=== PATIENT | male | born 1960 | race Caucasian/White ===

== ENCOUNTER 2017-07-01 02:02 | Emergency (ER) | payer OTHER ==
[~2017-07-01] VITALS: Ht 180.3 cm; Wt 140.0 kg
[2017-07-01 02:05] VITALS: BP 152/72; PULSE 101; RESP 18; TEMP 97.6; O2SAT 95
--- NOTE | 2017-07-01 02:34 | PD ---
HPI Chief Complaint: Skin Problem Time Seen by Provider: 02:28 Travel History International Travel<30 days: No Contact w/Intl Traveler<30days: No Traveled to known affect area: No History of Present Illness HPI 56-year-old male patient with history of previous CAD, CVA, COPD, presents to the ER today because he has had 3 weeks history of the right leg swelling, redness, had been seen by primary care doctor and was treated several times with antibiotics without significant improvement, he states that it is hurting more today. He states that he has become more swollen. He denies any fevers or any other issues. Modifying Factors: None Associated Signs & Symptoms: Right leg swelling, redness for 3 weeks, worsening pain Risk Factors: None PFSH Past Medical History Cardiac Catheterization: Yes COPD: Yes Cerebrovascular Accident: Yes Coronary Artery Disease: Yes Diminished Hearing: No Hypertension: Yes Musculoskeletal: Yes (chronic back) Tetanus Vaccination: Unknown Influenza Vaccination: No Past Surgical History Coronary Stent: Yes (x1) Other Surgery: Yes (removed a lump from neck of neck ) Social History Alcohol Use: Yes (socially) Tobacco Use: Yes Substance Use: No ( medical [facility]) Allergies-Medications (Allergen,Severity, Reaction): Coded Allergies: No Known Allergies (Unverified , 07/01/17) Review of Systems Except as stated in HPI: all other systems reviewed are Neg Physical Exam Narrative GENERAL: Well-developed middle-age male patient currently in mild distress. Awake and oriented 3. SKIN: Focused skin assessment warm/dry. HEAD: Atraumatic. Normocephalic. EYES: Pupils equal and round. No scleral icterus. No injection or drainage. ENT: No nasal bleeding or discharge. Mucous membranes pink and moist. NECK: Trachea midline. No JVD. Supple. CARDIOVASCULAR: Regular rate and rhythm. No murmur appreciated. RESPIRATORY: No accessory muscle use. Clear to auscultation. Breath sounds equal bilaterally. GASTROINTESTINAL: Abdomen soft, non-tender, nondistended. Hepatic and splenic margins not palpable. MUSCULOSKELETAL: No obvious deformities. No clubbing. No cyanosis. Right pitting edema, calf tenderness, erythema. NEUROLOGICAL: Awake and alert. No obvious cranial nerve deficits. Motor grossly within normal limits. Normal speech. PSYCHIATRIC: Appropriate mood and affect; insight and judgment normal. Data Data Last Documented VS Vital Signs Date Time Temp Pulse Resp B/P (MAP) Pulse Ox O2 Delivery O2 Flow Rate FiO2 07/01/17 02:05 97.6 101 18 152/72 (98) 95 Orders Orders Complete Blood Count With Diff (07/01/17 02:28) Comprehensive Metabolic Panel (07/01/17 02:28) Prothrombin Time / Inr (Pt) (07/01/17 02:28) Act Partial Throm Time (Ptt) (07/01/17 02:28) Us Leg Venous Doppler (07/01/17 02:28) Labs Laboratory Tests Test 07/01/17 02:40 White Blood Count 11.6 TH/MM3 Red Blood Count 4.89 MIL/MM3 Hemoglobin 15.2 GM/DL Hematocrit 44.3 % Mean Corpuscular Volume 90.6 FL Mean Corpuscular Hemoglobin 31.0 PG Mean Corpuscular Hemoglobin Concent 34.2 % Red Cell Distribution Width 14.5 % Platelet Count 218 TH/MM3 Mean Platelet Volume 9.5 FL Neutrophils (%) (Auto) 62.9 % Lymphocytes (%) (Auto) 22.0 % Monocytes (%) (Auto) 10.7 % Eosinophils (%) (Auto) 3.3 % Basophils (%) (Auto) 1.1 % Neutrophils # (Auto) 7.3 TH/MM3 Lymphocytes # (Auto) 2.5 TH/MM3 Monocytes # (Auto) 1.2 TH/MM3 Eosinophils # (Auto) 0.4 TH/MM3 Basophils # (Auto) 0.1 TH/MM3 CBC Comment DIFF FINAL Differential Comment Prothrombin Time 10.2 SEC Prothromb Time International Ratio 1.0 RATIO Activated Partial Thromboplast Time 25.7 SEC Blood Urea Nitrogen 20 MG/DL Creatinine 1.13 MG/DL Random Glucose 114 MG/DL Total Protein 7.1 GM/DL Albumin 3.8 GM/DL Calcium Level 8.7 MG/DL Alkaline Phosphatase 51 U/L Aspartate Amino Transf (AST/SGOT) 22 U/L Alanine Aminotransferase (ALT/SGPT) 35 U/L Total Bilirubin 0.3 MG/DL Sodium Level 141 MEQ/L Potassium Level 3.2 MEQ/L Chloride Level 103 MEQ/L Carbon Dioxide Level 27.4 MEQ/L Anion Gap 11 MEQ/L Estimat Glomerular Filtration Rate 67 ML/MIN MDM Medical Decision Making Medical Screen Exam Complete: Yes Emergency Medical Condition: Yes Medical Record Reviewed: Yes Interpretation(s) Laboratory Tests Test 07/01/17 02:40 White Blood Count 11.6 TH/MM3 (4.0-11.0) Monocytes (%) (Auto) 10.7 % (0.0-8.0) Monocytes # (Auto) 1.2 TH/MM3 (0-0.9) Blood Urea Nitrogen 20 MG/DL (7-18) Random Glucose 114 MG/DL (74-106) Potassium Level 3.2 MEQ/L (3.5-5.1) Estimat Glomerular Filtration Rate 67 ML/MIN (>89) Last 24 hours Impressions Lower Extremity Ultrasound 07/01/17 0228 Signed Impressions: Service Date/Time: Saturday, July 01, 2017 03:43 - CONCLUSION: Negative exam. No sonographic or Doppler findings of deep venous thrombosis. Fabiano Duarte MD Differential Diagnosis Right leg cellulitis versus DVT Narrative Course Ultrasound did not show signs of DVT. Patient had been on a cephalosporin for this infection. It appears that is not working well and at this point, my plan would be to switch her to Bactrim and have him follow-up with primary care doctor within the next few days. He should return for any worsening in symptoms , fevers, and as needed. The plan has been discussed with him and he states understanding. Diagnosis Primary Impression: Cellulitis of right leg Med/Other Pt SpecificInfo: Prescription(s) given Scripts Sulfamethoxazole-Trimethoprim (Bactrim DS) 800-160 Mg Tab 1 TAB PO BID for Infection, #14 TAB 0 Refills Prov: Quinton Mcdowell MD 07/01/17 Disposition: 01 DISCHARGE HOME Condition: Stable Quinton Mcdowell MD July 01, 2017 02:34
[2017-07-01 03:12] LABS: AUTOMATED NEUTROPHIL # 7.3 TH/MM3 (1.8-7.7); BASOPHIL # 0.1 TH/MM3 (0-0.2); BASOPHIL % 1.1 % (0.0-2.0); EOSINOPHIL # 0.4 TH/MM3 (0-0.4); EOSINOPHIL % 3.3 % (0.0-4.0); HEMATOCRIT 44.3 % (39.0-51.0); HEMOGLOBIN 15.2 GM/DL (13.0-17.0); LYMPHOCYTE # 2.5 TH/MM3 (1.0-4.8); MEAN CELL VOLUME 90.6 FL (80.0-100.0); MEAN CORPUSCULAR HGB CONC 34.2 % (32.0-36.0); MEAN PLATELET VOLUME 9.5 FL (7.0-11.0); MONO % 10.7 % (0.0-8.0); MONOCYTE # 1.2 TH/MM3 (0-0.9); NEUT % 62.9 % (16.0-70.0); PLATELET COUNT 218 TH/MM3 (150-450); RED BLOOD COUNT 4.89 MIL/MM3 (4.50-5.90); RED CELL DISTRIBUTION WIDTH 14.5 % (11.6-17.2); WHITE BLOOD COUNT 11.6 TH/MM3 (4.0-11.0)
[2017-07-01 03:21] LABS: PROTHROMBIN TIME - PATIENT 10.2 SEC (9.8-11.6)
[2017-07-01 03:28] LABS: ALKALINE PHOSPHATASE 51 U/L (45-117); TOTAL BILIRUBIN ADULT 0.3 MG/DL (0.2-1.0); TOTAL PROTEIN 7.1 GM/DL (6.4-8.2)
[2017-07-01 03:29] LABS: ALBUMIN 3.8 GM/DL (3.4-5.0); ALT (GPT) 35 U/L (12-78); AST (GOT) 22 U/L (15-37); BICARBONATE 27.4 MEQ/L (21.0-32.0); BLOOD UREA NITROGEN 20 MG/DL (7-18); CALCIUM 8.7 MG/DL (8.5-10.1); CHLORIDE 103 MEQ/L (98-107); CREATININE 1.13 MG/DL (0.60-1.30); GLOMERULAR FILTRATION RATE 67 ML/MIN (>89); GLUCOSE,RANDOM 114 MG/DL (74-106); SODIUM (NA) 141 MEQ/L (136-145)
--- NOTE | 2017-07-01 04:11 | RADRPT ---
EXAM DATE/TIME: 07/01/2017 03:43 [facility] COMPARISON: No previous studies available for comparison. INDICATIONS : Right lower leg redness and swelling with open wound lower leg. MEDICAL HISTORY : Hypertension. Chronic obstructive pulmonary disease. SURGICAL HISTORY : Cardiac stent. ENCOUNTER: Initial ACUITY: 3 weeks PAIN SCORE: 6/10 LOCATION: Right leg. TECHNIQUE: Venous ultrasound of the leg was performed from the inguinal ligament to the proximal calf. Real-shaka e, color Doppler and spectral tracing, compression and augmentation techniques were used. FINDINGS: There is normal compressibility of the deep venous system from the inguinal region to the proximal ca lf. No echogenic clot is seen in the lumen of the common femoral, femoral, popliteal, and posterior tibial veins. There is a normal response of the venous system to proximal and distal augmentation an d respiration. CONCLUSION: Negative exam. No sonographic or Doppler findings of deep venous thrombosis. Fabiano Duarte MD on July 01, 2017 at 4:09 Board Certified Radiologist. This report was verified electronically.
[2017-07-01] MEDS ORDERED: BACT800T5 PO (04:54)
[2017-07-01] MEDS ORDERED: SULFAMETHOXAZOLE-TRIMETHOPRIM DS 800-160 MG TAB PO ONE (05:00)
== END 2017-07-01 05:20 | disposition home or self-care (01) ==
LOC: NEPC 02:02
DX: L03.115 Cellulitis of right lower limb (principal); Z72.0 Tobacco use
CPT/HCPCS: 80053; 85025; 85610; 85730; 87040; 93971; 99284